=== PATIENT | female | born 1970 | race Caucasian/White ===

== ENCOUNTER 2016-09-05 14:05 | Emergency (ER) | payer OTHER ==
[~2016-09-05] VITALS: Ht 160 cm; Wt 111.5 kg
[~2016-09-05 14:05] MED LIST: ACET500C5 PO; HYDR2TAB3 PO; LORA0.5T PO; ONDA-43 PO
[2016-09-05 14:35] VITALS: Ht 160 cm; Wt 111.5 kg
[2016-09-05] MEDS ORDERED: KETOROLAC 30 MG INJ IV STA (16:41)
[2016-09-05] MEDS ORDERED: SOD CHLORIDE 0.9% 1,000 ML IV STA (16:41)
[2016-09-05] MEDS ORDERED: BELLADONNA/PHENOBARBITAL TAB PO STA (16:41)
[2016-09-05] MEDS ORDERED: ONDANSETRON 4 MG INJ IV STA (16:41)
[2016-09-05] MEDS ORDERED: LIDOCAINE/MYLANTA 40 ML BTL PO STA (16:41)
[2016-09-05 17:34] LABS: BASOPHIL # 0.1 10^3/ul (0.0-0.1); BASOPHILS % 1.2 % (0.0-2.0); EOSINOPHILS # 0.2 10^3/ul (0.0-0.5); EOSINOPHILS % 1.7 % (0.0-7.0); HEMATOCRIT 26.9 % (37.0-47.0); HEMOGLOBIN 8.4 g/dl (12.0-16.0); LYMPHOCYTES # 3.4 10^3/ul (0.8-2.9); LYMPHOCYTES % 33.1 % (15.0-51.0); MEAN CORPUSCULAR HEMOGLOBIN 20.7 pg (29.0-33.0); MEAN CORPUSCULAR HGB CONC 31.1 g/dl (32.0-37.0); MEAN CORPUSCULAR VOLUME 66.6 fl (82.0-101.0); MEAN PLATELET VOLUME 8.5 fl (7.4-10.4); MONOCYTE # 0.5 10^3/ul (0.3-0.9); MONOCYTES % 4.7 % (0.0-11.0); NEUTROPHIL # 6.1 10^3/ul (1.6-7.5); NEUTROPHILS % 59.3 % (39.0-77.0); PLATELET COUNT 225 10^3/UL (140-440); RED BLOOD COUNT 4.05 10^6/ul (4.20-5.40); RED CELL DISTRIBUTION WIDTH 20.2 % (11.5-14.5); UNCORRECTED WBC 10.2 10^3/ul (4.8-10.8); WHITE BLOOD COUNT 10.2 10^3/ul (4.8-10.8)
[2016-09-05 17:38] LABS: CONDITION 1; LH ANALYZER COMMENTS 1
[2016-09-05 17:53] LABS: ALBUMIN 4.1 g/dl (3.3-4.9)
[2016-09-05 17:56] LABS: ALBUMIN/GLOBULIN RATIO 1.24; BILIRUBIN,INDIRECT 0.1 mg/dl (0-1.1); BILIRUBIN,TOTAL 0.1 mg/dl (0.2-1.3); CREATININE 0.79 mg/dl (0.44-1.00); TOTAL PROTEIN 7.4 g/dl (6.1-8.1)
[2016-09-05 17:57] LABS: CALCIUM 9.4 mg/dl (8.4-10.2)
[2016-09-05] MEDS ORDERED: morphine 2 MG INJ IV ONE (18:00)
[2016-09-05] MEDS ORDERED: HYDROCODONE/APAP (5/325) TAB PO ONE (18:30)
[2016-09-05] MEDS ORDERED: METOCLOPRAMIDE 10 MG INJ IV ONE (19:00)
[2016-09-05 19:15] VITALS: BP 132/66; PULSE 78; RESP 18; TEMP 98
--- NOTE | 2016-09-05 22:07 | ERD ---
ER Documentation Chief Complaint Date/Time DATE: 09/05/16 TIME: 22:00 Chief Complaint AP AND ANXIETY HPI This is a 45-year-old female complains of abdominal pain and nausea vomiting. She is here accompanied by her roommate. She says she has had the nausea vomiting for 3 or 4 days and abdominal pain for a few days and worsened today. Looking back at her previous charts she has been seen multiple times here and has previously has for multiple episodes of Dilaudid. She claims to have a history of ovarian cancer and that she had chemo and radiation. She claims that she has gastroparesis and that she had a nuclear study done previously and is awaiting follow-up at [facility] pain management and GI. She says she did see a GI doctor but they said they could not do much for her. Looking back at her chart she has had episodes where she receives Dilaudid and she subsequently elopes. Per previous charts she also has said that she was on Dilaudid at home. However today she says the only medication that helps her starts with the D and starts with hydro-something. ROS All systems reviewed and are negative except as per history of present illness. Medications Home Meds Active Scripts Acetaminophen* (Tylophen*) 500 Mg Capsule, 1 CAP PO Q6H Y for PAIN AND OR ELEVATED TEMP, #20 CAP Prov:YEHUDA VALLES DO 10/12/15 Reported Medications Ondansetron Hcl* (Zofran*) 4 Mg Tab, 4 MG PO Q4H Y for NAUSEA AND OR VOMITING, TAB 10/18/14 Lorazepam* (Lorazepam*) 0.5 Mg Tablet, 0.5 MG PO Q6 Y for ANXIETY, TAB 10/18/14 Hydromorphone Hcl* (Hydromorphone Hcl*) 2 Mg Tablet, 2 MG PO Q4H Y for PAIN, TAB 10/18/14 Allergies Allergies: Coded Allergies: Penicillins (Verified Allergy, Unknown, 06/20/16) REENTER OF ALLERGY IN UNCODED ALLERGY FIELD aspirin (Verified Allergy, Unknown, 10/12/15) sob codeine (Verified Allergy, Unknown, 06/20/16) REENTER OF ALLERGY IN UNCODED ALLERGY FIELD prochlorperazine (Verified Allergy, Unknown, 10/12/15) itch PMhx/Soc History of Surgery: No (GALLBLADDER 07) Anesthesia Reaction: No Hx Neurological Disorder: No Hx Respiratory Disorders: No Hx Cardiac Disorders: No Hx Psychiatric Problems: Yes (ANXIETY) Hx Miscellaneous Medical Probl: Yes (PANCREATITIS, "RADIOACTIVE POISONING" OVARIAN CA) Hx Alcohol Use: No Hx Substance Use: No Hx Tobacco Use: No Physical Exam Vitals Vital Signs Date Time Temp Pulse Resp B/P Pulse Ox O2 Delivery O2 Flow Rate FiO2 09/05/16 19:15 98.0 78 18 132/66 99 Room Air 09/05/16 14:35 98.0 107 18 129/66 99 Physical Exam Const: She appears in moderate to severe distress alert and oriented. However when she stops to speak to me that she does not appear in any distress. Head: Atraumatic Eyes: Normal Conjunctiva ENT: Normal External Ears, Nose and Mouth. Neck: Full range of motion..~ No meningismus. Resp: Clear to auscultation bilaterally Cardio: Regular rate and rhythm, no murmurs Abd: Soft, diffusely moderate to severe tenderness to palpation non distended. Normal bowel sounds no rebound rigidity or guarding Skin: No petechiae or rashes Back: No midline or flank tenderness Ext: No cyanosis, or edema Neur: Awake and alert Psych: Normal Mood and Affect Result Diagram: 09/05/16 1700 09/05/16 1700 Results 24 hrs Laboratory Tests Test 09/05/16 17:00 Alanine Aminotransferase (ALT/SGPT) 19IU/L Albumin 4.1g/dl Albumin/Globulin Ratio 1.24 Alkaline Phosphatase 74IU/L Anion Gap 18 Aspartate Amino Transf (AST/SGOT) 16IU/L Basophils # 0.110^3/ul Basophils % 1.2% Blood Morphology Comment Blood Urea Nitrogen 12mg/dl Calcium Level 9.4mg/dl Carbon Dioxide Level 22mmol/L Chloride Level 105mmol/L Creatinine 0.79mg/dl Direct Bilirubin 0.00mg/dl Eosinophils # 0.210^3/ul Eosinophils % 1.7% Globulin 3.30g/dl Glucose Level 76mg/dl Hematocrit 26.9% Hemoglobin 8.4g/dl Indirect Bilirubin 0.1mg/dl Lipase 134U/L Lymphocytes # 3.410^3/ul Lymphocytes % 33.1% Mean Corpuscular Hemoglobin 20.7pg Mean Corpuscular Hemoglobin Concent 31.1g/dl Mean Corpuscular Volume 66.6fl Mean Platelet Volume 8.5fl Monocytes # 0.510^3/ul Monocytes % 4.7% Neutrophils # 6.110^3/ul Neutrophils % 59.3% Nucleated Red Blood Cells # 0.010^3/ul Nucleated Red Blood Cells % 0.0/100WBC Platelet Count 31142^3/UL Potassium Level 4.0mmol/L Red Blood Count 4.0510^6/ul Red Cell Distribution Width 20.2% Sodium Level 141mmol/L Total Bilirubin 0.1mg/dl Total Protein 7.4g/dl White Blood Count 10.210^3/ul Current Medications Medications (Trade) Dose Ordered Sig/Dion Route PRN Reason Start Time Stop Time Status Last Admin Dose Admin Sodium Chloride (NS) 1,000 ml @ 1,000 mls/hr Q1H STAT IV 09/05/16 16:41 09/05/16 17:40 DC 09/05/16 17:07 Ondansetron HCl (Zofran Inj) 4 mg ONCE STAT IV 09/05/16 16:41 09/05/16 16:43 DC 09/05/16 17:07 Miscellaneous Medication (Gi Cocktail (2)) 40 ml ONCE STAT PO 09/05/16 16:41 09/05/16 16:43 DC 09/05/16 17:06 Belladonna/ Phenobarbital () 2 tab ONCE STAT PO 09/05/16 16:41 09/05/16 16:43 DC 09/05/16 17:07 Ketorolac Tromethamine (Toradol) 30 mg ONCE STAT IV 09/05/16 16:41 09/05/16 16:43 DC 09/05/16 17:07 Morphine Sulfate (morphine) 2 mg ONCE ONCE IV 09/05/16 18:00 09/05/16 18:01 DC 09/05/16 17:37 Acetaminophen/ Hydrocodone Bitart ([place] (5/325)) 1 tab ONCE ONCE PO 09/05/16 18:30 09/05/16 18:31 DC 09/05/16 18:38 Metoclopramide HCl (Reglan) 10 mg ONCE ONCE IV 09/05/16 19:00 09/05/16 19:01 DC 09/05/16 18:51 Procedures/MDM She did not want to do a CAT scan because she says she has had many CAT scans before and she wants to avoid the radiation. When she has been seen here previously for abdominal pain she also had refused CAT scan. Says she has had significant workup outpatient. We did labs and the labs are normal. She has anemia however the anemia is chronic. No leukocytosis ptosis or less likely to be appendicitis cholangitis or cholecystitis or choledocholithiasis. She could not give us a urine sample. We gave her Toradol IV fluids and Zofran and she said the only medication that helps her start with the D. I subsequently gave her 2 mg of morphine and she still requested Dilaudid. Then I gave her [place] 1 pill oral which she tolerated well. On her chart that says that she is allergic to codeine however she had no reactions to the [place]. Then she was subsequently ready to be discharged. She appeared more comfortable and was walking around normally. Her abdominal pain is of unknown origin it could be gastroparesis or drug- seeking or multiple other chronic abdominal pain issues. I doubt pancreatitis as her lipase is normal. Diagnosis is abdominal pain of unknown origin. Vital signs are stable she stable for discharge. She should follow-up with her specialist and her primary doctor. Departure Diagnosis: Primary Impression: Abdominal pain Abdominal location: generalized Qualified Code: R10.84 - Generalized abdominal pain Additional Impressions: Abdominal pain of unknown cause Microcytic hypochromic anemia Condition: Stable Patient Instructions: Abdominal Pain, Abdominal Pain, Unknown Cause, (Female) Referrals: MYRON GRAY MD (PCP) FILOMENA ECHEVERRIA DO Sep 05, 2016 22:07
== END 2016-09-05 19:15 | disposition home or self-care (01) ==
LOC: FTE 14:05
DX: R10.84 Generalized abdominal pain (principal); D50.9 Iron deficiency anemia, unspecified; Z85.43 Personal history of malignant neoplasm of ovary
CPT/HCPCS: 36415; 80053; 83690; 85025; 96361; 96374; 96375; J1885; J2270; J2405; J2765; J7030; Z7502; Z7610

== ENCOUNTER 2017-04-16 15:24 | Emergency (ER) | END 2017-04-16 19:00 | disposition home or self-care (01) | DX: R10.84 Generalized abdominal pain (principal); I25.10 Atherosclerotic heart disease of native coronary artery without angina pectoris; E87.6 Hypokalemia; D64.9 Anemia, unspecified; Z85.43 Personal history of malignant neoplasm of ovary | CPT/HCPCS: 36415; 80053; 81001; 83690; 85025; 93005; 96374; 96375; 96376; J1170; J2405; J7030; Z7502; Z7610 ==

== ENCOUNTER 2017-04-23 14:23 | Emergency (ER) | payer OTHER ==
[~2017-04-23] VITALS: Ht 165.1 cm; Wt 89.0 kg
[~2017-04-23 14:23] MED LIST changes: +ALPR2TAB PO; +CEPH-443 PO; +CHLO1CAP56 PO; +DIAZ10TA4 PO; +OMEP40CA6 PO; +ONDA4TAB35 PO; +RANI150T9 PO; +VENL75TA2 PO
[2017-04-23 14:28] VITALS: Ht 165.1 cm; Wt 89.0 kg
[2017-04-23] MEDS ORDERED: ONDANSETRON 4 MG INJ IV STA (15:39)
[2017-04-23 16:23] LABS: BASOPHILS % 0.5 % (0.0-2.0); EOSINOPHILS # 0.2 10^3/ul (0.0-0.5); EOSINOPHILS % 2.1 % (0.0-7.0); HEMATOCRIT 31.7 % (37.0-47.0); HEMOGLOBIN 9.6 g/dl (12.0-16.0); LYMPHOCYTES # 2.8 10^3/ul (0.8-2.9); LYMPHOCYTES % 36.5 % (15.0-51.0); MEAN CORPUSCULAR HEMOGLOBIN 22.7 pg (29.0-33.0); MEAN CORPUSCULAR HGB CONC 30.3 g/dl (32.0-37.0); MEAN CORPUSCULAR VOLUME 74.9 fl (82.0-101.0); MEAN PLATELET VOLUME 10.6 fl (7.4-10.4); MONOCYTE # 0.5 10^3/ul (0.3-0.9); MONOCYTES % 6.2 % (0.0-11.0); NEUTROPHILS % 54.4 % (39.0-77.0); PLATELET COUNT 224 10^3/UL (140-415); RED BLOOD COUNT 4.23 10^6/ul (4.20-5.40); RED CELL DISTRIBUTION WIDTH 20.3 % (11.5-14.5); WHITE BLOOD COUNT 7.7 10^3/ul (4.8-10.8)
[2017-04-23 16:40] LABS: INR 0.93; PROTIME 12.5 Sec (12.2-14.2)
[2017-04-23 16:41] LABS: PARTIAL THROMBOPLASTIN TIME 25.7 Sec (25.0-35.0)
[2017-04-23 16:53] LABS: TROPONIN-I < 0.012 ng/ml (0.00-0.12)
[2017-04-23 16:53] LABS: ADD UMIC YES; UR ASCORBIC ACID NEGATIVE (NEGATIVE); UR BILIRUBIN (Dip) NEGATIVE (NEGATIVE); UR BLOOD (Dip) 3+ mg/dL (NEGATIVE); UR CLARITY TURBID (CLEAR); UR COLOR RED (YELLOW); UR GLUCOSE (Dip) 1+ mg/dL (NEGATIVE); UR KETONES (Dip) TRACE mg/dL (NEGATIVE); UR LEUKOCYTE ESTERASE (Dip) NEGATIVE Leu/ul (NEGATIVE); UR MUCUS MANY /HPF (NONE SEEN); UR NITRITE (Dip) NEGATIVE (NEGATIVE); UR RBC > 182 /HPF (0-5); UR SPECIFIC GRAVITY (Dip) 1.029 (1.003-1.030); UR SQUAMOUS EPITHELIAL CELL MODERATE /HPF (FEW); UR TOTAL PROTEIN (Dip) 2+ mg/dl (NEGATIVE); UR UROBILINOGEN (Dip) NEGATIVE (NEGATIVE)
[2017-04-23 16:54] LABS: ALANINE AMINOTRANSFERASE 23 IU/L (13-69); ALBUMIN 4.8 g/dl (3.3-4.9); ALBUMIN/GLOBULIN RATIO 1.37; ALKALINE PHOSPHATASE 61 IU/L (42-121); ANION GAP 17 (8-16); ASPARTATE AMINO TRANSFERASE 22 IU/L (15-46); BILIRUBIN,INDIRECT 0.3 mg/dl (0-1.1); BILIRUBIN,TOTAL 0.3 mg/dl (0.2-1.3); BLOOD UREA NITROGEN 12 mg/dl (7-20); CALCIUM 9.7 mg/dl (8.4-10.2); CARBON DIOXIDE 23 mmol/L (21-31); CHLORIDE 106 mmol/L (97-110); CREATININE 0.95 mg/dl (0.44-1.00); GLUCOSE 86 mg/dl (70-220); POTASSIUM 4.2 mmol/L (3.5-5.1); SODIUM 142 mmol/L (135-144); TOTAL PROTEIN 8.3 g/dl (6.1-8.1)
[2017-04-23 16:55] LABS: ETHANOL < 10.0 mg/dl
--- NOTE | 2017-04-23 16:58 | RADRPT ---
PROCEDURE: XR Chest. CLINICAL INDICATION: Abdominal pain. TECHNIQUE: Single frontal view. COMPARISON: None. FINDINGS: There is a 0.4 cm nodule at the right lung base. The lungs are otherwise clear. The heart size is normal. There is no pleural effusion. There is no pneumothorax. IMPRESSION: 1. Nodule in the right lung base measuring 0.4 cm. Follow-up chest radiograph and 6 months is advi sed. 2. Otherwise unremarkable chest radiograph. RPTAT: QQ .Anant Groves MD, MD Date Time Electronically viewed and signed by .Anant Groves MD, MD on 04/23/2017 16:57 .R/
[2017-04-23 17:15] LABS: BARBITURATES Negative (NEGATIVE); BENZODIAZEPINES Positive (NEGATIVE); CANNABINOIDS Positive (NEGATIVE); COCAINE Negative (NEGATIVE); OPIATES Negative (NEGATIVE)
[2017-04-23] MEDS ORDERED: HYDROmorphONE 1 MG/ML SYG IV STA (17:33)
--- NOTE | 2017-04-23 18:21 | RADRPT ---
PROCEDURE: Noncontrast CT Head. CLINICAL INDICATION: Syncope. TECHNIQUE: Noncontrast CT of the head was obtained. The administered radiation dose was CTDI vol = 43.13 mGy, DLP = 824.05 mGy-cm. One or more of the following dose reduction techniques were used: Au tomated exposure control, Adjustment of the mA and/or kV according to patient size, or Use of iterat anya reconstruction technique. COMPARISON: There are no similar studies submitted for comparison. FINDINGS: The ventricles and sulci are within normal limits. There is no loss of delvalle-white differentiation to suggest acute territorial infarction. There is no acute intracranial hemorrhage. There is no mass effect. No midline shift is identified. The orbits are within normal limits. The paranasal sinuses are well aerated. No destructive osseous lesion is identified. IMPRESSION: No acute intracranial hemorrhage. Further findings as detailed above. RPTAT: PP .Kahlil Arriaza MD, MD Date Time Electronically viewed and signed by .Kahlil Arriaza MD, on 04/23/2017 18:20 .F/
--- NOTE | 2017-04-23 19:14 | ERA ---
ER Documentation Chief Complaint Date/Time DATE: 04/23/17 TIME: 19:12 Chief Complaint Complains of dizzines, abdominal pain and seeing spots, passed out at MD of DARYA The patient is a 46-year-old female, presenting to the ER because of questionable syncope in the physician's office. She has history of syncope for more than a year and chronic abdominal pain for years. She is awake, alert, asking for intravenous pain medication . She had extensive diagnostic workup, including EGD, colonoscopy, small bowel series 2 months ago that showed gastroparesis. She was seen in the ER last week in [place]. She has physically presented to the ER for similar chronic abdominal pain, requesting Dilaudid IV. The pain is nonspecific, not associating with fever, vomiting, diarrhea, dysuria. She does not smoke nor drink She was sent from her physician Dr. Natalie Lehman who requested patient to be admitted for further evaluation for syncope Past medical history: Chronic abdominal pain, history of TIA, CAD, anxiety, gastroparesis Past surgical history: EGD, colonoscopy ROS All systems reviewed and are negative except as per history of present illness. Medications Home Meds Reported Medications Chlordiazepoxide/Clidinium Br (Librax Capsule) 1 Each Capsule, 1 EACH PO TID, CAP 5.25MG 04/16/17 Ranitidine Hcl* (Zantac*) 150 Mg Tablet, 150 MG PO BID, #60 TAB 04/16/17 Omeprazole* (Omeprazole*) 40 Mg Capsule.dr, 40 MG PO DAILY, #30 CAP 04/16/17 Venlafaxine Hcl* (Effexor XR*) 75 Mg Tab.er.24, 75 MG PO DAILY, TAB.SA 04/16/17 Diazepam* (Diazepam*) 10 Mg Tablet, 10 MG PO TID, TAB 04/16/17 Alprazolam* (Xanax*) 2 Mg Tablet, 2 MG PO BID Y for ANXIETY, TAB 04/16/17 Ondansetron Hcl* (Zofran*) 4 Mg Tab, 4 MG PO Q4H Y for NAUSEA AND OR VOMITING, TAB 10/18/14 Discontinued Reported Medications Lorazepam* (Lorazepam*) 0.5 Mg Tablet, 0.5 MG PO Q6 Y for ANXIETY, TAB 10/18/14 Hydromorphone Hcl* (Hydromorphone Hcl*) 2 Mg Tablet, 2 MG PO Q4H Y for PAIN, TAB 10/18/14 Discontinued Scripts Acetaminophen* (Tylophen*) 500 Mg Capsule, 1 CAP PO Q6H Y for PAIN AND OR ELEVATED TEMP, #20 CAP Prov:YEHUDA VALLES DO 10/12/15 Allergies Allergies: Coded Allergies: Penicillins (Verified Allergy, Unknown, 04/23/17) REENTER OF ALLERGY IN UNCODED ALLERGY FIELD aspirin (Verified Allergy, Unknown, 04/23/17) sob codeine (Verified Allergy, Unknown, 04/23/17) REENTER OF ALLERGY IN UNCODED ALLERGY FIELD ketorolac (Unverified Allergy, Unknown, 04/23/17) metoclopramide (Unverified Allergy, Unknown, 04/23/17) morphine (Unverified Allergy, Unknown, 04/23/17) prochlorperazine (Verified Allergy, Unknown, 04/23/17) itch trazodone (Unverified Allergy, Unknown, 04/23/17) PMhx/Soc History of Surgery: No (GALLBLADDER 07) Anesthesia Reaction: No Hx Neurological Disorder: No Hx Respiratory Disorders: No Hx Cardiac Disorders: No Hx Psychiatric Problems: Yes (ANXIETY) Hx Miscellaneous Medical Probl: Yes (PANCREATITIS, "RADIOACTIVE POISONING" OVARIAN CA) Hx Alcohol Use: No Hx Substance Use: No Hx Tobacco Use: No Physical Exam Vitals Vital Signs Date Time Temp Pulse Resp B/P Pulse Ox O2 Delivery O2 Flow Rate FiO2 04/23/17 18:47 98.3 73 16 134/123 100 Room Air 04/23/17 18:01 98.5 69 16 134/85 98 Room Air 04/23/17 16:07 98.1 57 18 123/80 98 Room Air 04/23/17 14:28 98.2 73 20 130/67 98 Physical Exam Const: No acute distress. Very anxious Head: Atraumatic. Eyes: Normal Conjunctiva. ENT: Normal External Ears, Nose and Mouth. Neck: Full range of motion. No meningismus. Resp: Clear to auscultation bilaterally. Cardio: Regular rate and rhythm. Abd: Soft, non distended, normal bowel sounds, non tender. Skin: No petechiae or rashes. Back: No midline or flank tenderness. Ext: No cyanosis, or edema. Neur: Awake and alert. No focal deficit Psych: Normal Mood and Affect. Result Diagram: 04/23/17 1600 04/23/17 1600 Results 24 hrs Laboratory Tests Test 04/23/17 16:00 04/23/17 16:24 White Blood Count 7.710^3/ul Red Blood Count 4.2310^6/ul Hemoglobin 9.6g/dl Hematocrit 31.7% Mean Corpuscular Volume 74.9fl Mean Corpuscular Hemoglobin 22.7pg Mean Corpuscular Hemoglobin Concent 30.3g/dl Red Cell Distribution Width 20.3% Platelet Count 36506^3/UL Mean Platelet Volume 10.6fl Neutrophils % 54.4% Lymphocytes % 36.5% Monocytes % 6.2% Eosinophils % 2.1% Basophils % 0.5% Nucleated Red Blood Cells % 0.0/100WBC Neutrophils # (Manual) 410^3/ul Lymphocytes # 2.810^3/ul Monocytes # 0.510^3/ul Eosinophils # 0.210^3/ul Basophils # 0.010^3/ul Nucleated Red Blood Cells # 0.010^3/ul Prothrombin Time 12.5Sec Prothrombin Time Ratio 1.0 INR International Normalized Ratio 0.93 Activated Partial Thromboplast Time 25.7Sec Sodium Level 142mmol/L Potassium Level 4.2mmol/L Chloride Level 106mmol/L Carbon Dioxide Level 23mmol/L Anion Gap 17 Blood Urea Nitrogen 12mg/dl Creatinine 0.95mg/dl Glucose Level 86mg/dl Calcium Level 9.7mg/dl Total Bilirubin 0.3mg/dl Direct Bilirubin 0.00mg/dl Indirect Bilirubin 0.3mg/dl Aspartate Amino Transf (AST/SGOT) 22IU/L Alanine Aminotransferase (ALT/SGPT) 23IU/L Alkaline Phosphatase 61IU/L Troponin I < 0.012ng/ml Total Protein 8.3g/dl Albumin 4.8g/dl Globulin 3.50g/dl Albumin/Globulin Ratio 1.37 Lipase 91U/L Serum HCG, Qualitative NEGATIVE Ethyl Alcohol Level < 10.0mg/dl Urine Color RED Urine Clarity TURBID Urine pH 5.0 Urine Specific [place] 1.029 Urine Ketones TRACEmg/dL Urine Nitrite NEGATIVEmg/dL Urine Bilirubin NEGATIVEmg/dL Urine Urobilinogen NEGATIVEmg/dL Urine Leukocyte Esterase NEGATIVELeu/ul Urine Microscopic RBC > 182/HPF Urine Microscopic WBC 158/HPF Urine Squamous Epithelial Cells MODERATE/HPF Urine Mucus MANY/HPF Urine Hemoglobin 3+mg/dL Urine Glucose 1+mg/dL Urine Total Protein 2+mg/dl Urine Opiates Screen Negative Urine Barbiturates Negative Urine Amphetamines Screen Negative Urine Benzodiazepines Screen Positive Urine Cocaine Screen Negative Urine Cannabinoids Positive Current Medications Medications (Trade) Dose Ordered Sig/Dion Route PRN Reason Start Time Stop Time Status Last Admin Dose Admin Ondansetron HCl (Zofran Inj) 4 mg ONCE STAT IV 04/23/17 15:39 04/23/17 15:43 DC 04/23/17 16:31 Hydromorphone HCl (Dilaudid) 1 mg ONCE STAT IV 04/23/17 17:33 04/23/17 17:35 DC 04/23/17 17:37 Procedures/MDM [place] [id number] Radiology Main Line: [phone] DIAGNOSTIC IMAGING REPORT Patient: SHAHLA MANNING : 1970 Age: 46 Sex: F MR #: [id number] DOS: 04/23/17 1539 Ordering MD: HARVEY GUDINO MD Location: E/R Room/Bed: PROCEDURE: XR Chest. CLINICAL INDICATION: Abdominal pain. TECHNIQUE: Single frontal view. COMPARISON: None. FINDINGS: There is a 0.4 cm nodule at the right lung base. The lungs are otherwise clear. The heart size is normal. There is no pleural effusion. There is no pneumothorax. IMPRESSION: 1. Nodule in the right lung base measuring 0.4 cm. Follow-up chest radiograph and 6 months is advised. 2. Otherwise unremarkable chest radiograph. RPTAT: QQ .Anant Groves MD, MD Date Time Electronically viewed and signed by .Anant Groves MD, on 04/23/2017 16:57 .R/ CC: HARVEY GUDINO MD [place] [id number] Radiology Main Line: [phone] DIAGNOSTIC IMAGING REPORT Patient: SHAHLA MANNING : 1970 Age: 46 Sex: F MR #: [id number] DOS: 04/23/17 1539 Ordering MD: HARVEY GUDINO MD Location: E/R Room/Bed: PROCEDURE: Noncontrast CT Head. CLINICAL INDICATION: Syncope. TECHNIQUE: Noncontrast CT of the head was obtained. The administered radiation dose was CTDI vol = 43.13 mGy, DLP = 824.05 mGy-cm. One or more of the following dose reduction techniques were used: Automated exposure control, Adjustment of the mA and/or kV according to patient size, or Use of iterative reconstruction technique. COMPARISON: There are no similar studies submitted for comparison. FINDINGS: The ventricles and sulci are within normal limits. There is no loss of delvalle-white differentiation to suggest acute territorial infarction. There is no acute intracranial hemorrhage. There is no mass effect. No midline shift is identified. The orbits are within normal limits. The paranasal sinuses are well aerated. No destructive osseous lesion is identified. IMPRESSION: No acute intracranial hemorrhage. Further findings as detailed above. RPTAT: PP .Kahlil Arriaza MD, Date Time Electronically viewed and signed by .Kahlil Arriaza MD, MD on 04/23/2017 18:20 .F/ CC: HARVEY GUDINO MD MEDICAL MAKING DECISION: The patient is a 46-year-old female, presenting to the ER because of questionable acute syncope, chronic abdominal pain. She was treated with Dilaudid 1 mg IV for pain and Zofran 4 mg IV for nausea with good response The differential diagnoses considered include but are not limited to bradyarrhythmia, tachyarrhythmias, aortic outflow obstruction, neurogenic including subarachnoid hemorrhage, orthostatic hypotension and all of its causes , hypoglycemia, dysautonomia, medications, anxiety attack, panic attacks, malingering. Departure Diagnosis: Primary Impression: Syncope Additional Impressions: Anemia Chronic abdominal pain Condition: Stable Comments I discussed the findings with the patient. I discussed the patient with her physician Dr Casillas from her [facility] who was made aware of the lab, the treatment, the patient condition. The patient is transferred via ambulance to [facility] [place] [facility] for admission HARVEY GUDINO MD Apr 23, 2017 19:14
[2017-04-23 20:56] VITALS: BP 136/88; PULSE 85; RESP 18; TEMP 98.3
[2017-04-23] MEDS ORDERED: ACETAMINOPHEN 325 MG TAB PO PRN (21:30)
[2017-04-23] MEDS ORDERED: ONDANSETRON 4 MG INJ IV PRN (21:30)
--- NOTE | 2017-04-23 21:35 | EN ---
Date/Time of Note Date/Time of Note DATE: 04/23/17 TIME: 21:33 ER Progress Note Patient refused to be transferred to [facility]. She states a lawsuit. The patient is continuing to ask for IV narcotics. I am concerned for drug- seeking behavior. I offered oral medication but the patient refused. The patient states that she wants to stay here. She understands that her insurance company may not pay for the stay. The patient is stable for transport at this time. She was informed to this. The patient states that she will request hospitalization. Dr. Lehman had sent the patient in for admission. Accepting care team and consultations: I discussed the current laboratory data, diagnostic imaging and emergency care provided. Admitting team: Dr. Davis regulatory submissions associate for Dr. Lehman Admitting team indication: Insurance directed ALTAGRACIA DIAZ MD Apr 23, 2017 21:35
== END 2017-04-23 21:55 | disposition left against medical advice (07) ==
LOC: E/R 14:23
DX: R55 Syncope and collapse (principal); D64.9 Anemia, unspecified; R10.9 Unspecified abdominal pain; I25.10 Atherosclerotic heart disease of native coronary artery without angina pectoris
CPT/HCPCS: 36415; 70450; 71010; 80053; 80306; 80307; 81001; 83690; 84484; 84703; 85025; 85610; 85730; 93005; 96374; 96375; J1170; J2405; Z7502

== ENCOUNTER 2017-10-30 17:31 | Emergency (ER) | END 2017-10-30 21:49 | disposition left against medical advice (07) ==